=== PATIENT | female | born 1955 | race Caucasian/White ===

== ENCOUNTER → 2018-01-24 | Outpatient (CLI) | payer OTHER ==
[~2018-01-24] MED LIST: ATACAND PO; CARISOPRODOL 3350 MG PO; COLACE 100 MG100 MG PO; COUMADIN 5 MG TA5 M1 PO; CYMBALTA60 MG PO; EXCEDRIN PM PO; FLAGYL500 MG PO; HYDROCODONE-AP1 EAC6 PO; OMEPRAZOLE20 MG PO; OXYCODONE HCL5 M1 PO; PERCOCET PO; TRAMADOL 50 MG50 MG PO; VICODIN 5-5001 EACH PO; ZOFRAN ODT4 MG PO
== END ==
LOC: M.RAD 01-19 08:22
DX: Z12.31 Encounter for screening mammogram for malignant neoplasm of breast (principal); M85.89 Other specified disorders of bone density and structure, multiple sites

== ENCOUNTER 2019-03-04 19:51 | Inpatient (IN) | payer OTHER ==
[~2019-03-04] VITALS: Ht 154.9 cm; Wt 91.2 kg
--- NOTE | ~2019-03-04 | PROC ---
[address] [address] PROCEDURE REPORT Name: RAFITA KAUFMAN Room: [address] ADM IN M.R.#: [id number] Admission: 03/04/19 Attend Phys: Thierno Wheeler MD Discharge: Date of : 51 Report #: [id number] THIS REPORT FOR: //name// For GI report, please see the Provation report in Perceptive 7 content. By: 1058Medical Records Staff [facility] /ROEL
[~2019-03-04 19:51] MED LIST changes: +VICODIN 5-3001 EACH PO; -VICODIN 5-5001 EACH PO
[2019-03-04 20:03] VITALS: BP 142/102
[2019-03-04] MEDS ORDERED: COZAAR 25 MG TA25 M1 PO (20:17)
[2019-03-04] MEDS ORDERED: DOXYCYCLINE 10100 MG PO (20:19)
[2019-03-04] MEDS ORDERED: AMBIEN 5 MG TABL5 M1 PO (20:20)
[2019-03-04] MEDS ORDERED: VITAMIN D5000 UNIT PO (20:20)
[2019-03-04] MEDS ORDERED: FOLIC ACID1 MG PO (20:20)
[2019-03-04 20:48] LABS: ABSOLUTE BASOPHILS 0.1 thou/uL (0.0-0.2); ABSOLUTE EOSINOPHILS 0.1 thou/uL (0.0-0.7); ABSOLUTE LYMPHOCYTES 3.7 thou/uL (0.8-5.3); ABSOLUTE MONOCYTES 0.6 thou/uL (0.0-1.2); ABSOLUTE NEUTROPHILS 4.6 thou/uL (1.6-8.1); BASOPHILS 1.3 %; EOSINOPHILS 1.6 %; HEMATOCRIT 36.7 % (37.0-47.0); HEMOGLOBIN 12.6 gm/dL (12.0-15.0); LYMPHOCYTES 40.2 %; MCHC 34.4 g/dL (28.0-37.0); MCV 96.1 fL (80.0-100.0); MONOCYTES 6.1 %; MPV 7.7 fl. (7.2-11.1); NUCLEATED RBCS 0 /100WBC; PLATELET COUNT* 400 thou/uL (150-400); POLYS 50.8 %; RBC 3.82 mil/uL (4.20-5.00); RDW-CV 16.2 % (10.5-14.5); WBC 9.1 thou/uL (4.0-11.0)
[2019-03-04 20:58] LABS: ANION GAP 13 mmol/L (7-16); BUN 20 mg/dL (7-18); CALCIUM 9.4 mg/dL (8.5-10.1); CHLORIDE 103 mmol/L (98-107); CO2 23 mmol/L (21-32); GLUCOSE 102 mg/dL (70-99); POTASSIUM 4.1 mmol/L (3.5-5.1); SODIUM 139 mmol/L (136-145)
[2019-03-04 21:01] LABS: INR 1.1; PROTIME 10.8 Seconds (9.20-11.50)
[2019-03-04 21:08] LABS: ALBUMIN 3.7 g/dL (3.4-5.0); ALKALINE PHOSPHATASE 92 U/L (46-116); LIPASE 1070 U/L (73-393); NT-PRO BRAIN NAT PEPTIDE 40 pg/mL (<300); SGOT 17 U/L (15-37); SGPT 27 U/L (30-65); TOTAL BILIRUBIN 0.5 mg/dL (<0.1-1.0); TOTAL PROTEIN 7.3 g/dL (6.4-8.2); TROPONIN-I LEVEL <0.06 ng/mL (<0.06)
[2019-03-04 22:02] LABS: URINE BILIRUBIN NEGATIVE (Negative); URINE BLOOD TRACE (Negative); URINE CLARITY CLEAR; URINE COLOR YELLOW; URINE GLUCOSE-RANDOM NEGATIVE (Negative); URINE KETONES NEGATIVE (Negative); URINE LEUKOCYTES-REFLEX NEGATIVE (Negative); URINE NITRITE-REFLEX NEGATIVE (Negative); URINE PROTEIN NEGATIVE (Negative); URINE SPECIFIC GRAVITY <= 1.005 (1.005-1.030); URINE UROBILINOGEN 0.2 E.U./dl (0.2-1.0)
[2019-03-04 23:28] VITALS: BP 154/88
[2019-03-05] VITALS (7 sets, daily range): BP systolic 116–157; BP diastolic 73–88
[2019-03-05] MEDS ORDERED: OMEPRAZOLE40 MG PO (14:24)
--- NOTE | 2019-03-05 14:38 | EKG ---
[place] [address] ELECTROCARDIOGRAM REPORT Name: RAFITA KAUFMAN Room: [address] ADM IN .R.#: [id number] Admission: 03/04/19 Attend Phys: Thierno Wheeler MD Discharge: Date of : 51 Report #: [id number] THIS REPORT FOR: //name// [facility] ED Test Date: 2019-03-04 Test Time: 20:00:19 Pat Name: RAFITA KAUFMAN Department: Room: [facility] Gender: F Dyer Helper: ANGELITA : 1955 Requested By: Wendy Savage Order Number: [id number] Rae MD: Pravin Hsieh Measurements Intervals [place] Rate: 85 P: 29 VA: 168 QRS: 15 QRSD: 99 T: 17 QT: 371 QTc: 442 Interpretive Statements Sinus rhythm Low voltage, precordial leads Borderline T abnormalities, diffuse leads Compared to ECG 07/29/2015 05:52:30 Low QRS voltage now present Sinus tachycardia no longer present Ventricular premature complex(es) no longer present Electronically Signed On 03-05-2019 14:37:44 CDT by Pravin Hsieh [email or web address] <ELECTRONICALLY SIGNED> By: Pravin Hsieh MD, FACC 03/05/19 1437 99 99 Pravin Hsieh MD, [facility] /EPI
--- NOTE | 2019-03-05 15:21 | NUR ---
63 Y/O FEMALE ADMITTED TO TELEMETRY ROOM 207 WITH AN ADMITTING DIAGNOSIS OF PANCREATITIS. PT REPORTS 6/10 PAIN. MEDS GIVEN PER EMAR. VSS. SR ON MONITOR. ASSESSMENT COMPLETED CHARTED. PT DENIES ANY FURTHER NEEDS AT THIS TIME. HOURLY ROUNDING IN PLACE. CLWR.
--- NOTE | 2019-03-05 16:49 | EKG ---
[place] [address] ELECTROCARDIOGRAM REPORT Name: RAFITA KAUFMAN Room: [address] ADM IN .R.#: [id number] Admission: 03/04/19 Attend Phys: Thierno Wheeler MD Discharge: Date of : 51 Report #: [id number] THIS REPORT FOR: //name// [facility] ED Test Date: 2019-03-04 Test Time: 20:11:02 Pat Name: RAFITA KAUFMAN Department: Room: 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
--- NOTE | 2019-03-05 17:43 | CON ---
[address] [address] CONSULTATION Name: RAFITA KAUFMAN Room: [address] IN .R.#: [id number] Admission: 03/04/19 Attend Phys: Thierno Wheeler MD Discharge: Date of : 51 Report #: [id number] THIS REPORT FOR: //name// CC: Kash Wheeler DATE OF SERVICE: 03/05/2019 HISTORY OF PRESENT ILLNESS: The patient is a 63-year-old white female who I was asked to see in the hospital today after she complained of epigastric pain. The patient denies previous history of heart disease. She does not exercise on a regular basis. She was doing well until the past several weeks, she has had intermittent epigastric pain. She has had nausea, episode of diaphoresis. The pain was in her back. It is not related to food or exertion. She denies exertional arm pain. She denies dyspnea on exertion, palpitation, syncope, edema. She came to the hospital yesterday and was found to have evidence of pancreatitis. I was asked to see her for further evaluation and treatment. PAST MEDICAL HISTORY: Significant only for , knee replacement, and hypertension. MEDICATIONS: Include losartan, she is on nerve pill. ALLERGIES: SHE HAS ALLERGIES TO SULFA DRUGS AND LIPITOR. FAMILY HISTORY: Negative for coronary artery disease. SOCIAL HISTORY: She is . She and her live in [place]. She retired from [employer]. No history of smoking or alcohol abuse. REVIEW OF SYSTEMS: She has had no history of stroke, peptic ulcer disease, liver disease. She has had urinary tract infection in the past. No cancer. No psychiatric illness. No chronic skin condition. PHYSICAL EXAMINATION: GENERAL: Revealed a middle-aged female lying in bed. She appeared in mild abdominal discomfort. VITAL SIGNS: She had a blood pressure of 140/80, pulse 90. She is afebrile. HEENT: She was anicteric, conjunctivae pink. Mucous membranes moist. NECK: Veins do not appear distended. No carotid bruits. CHEST: Clear to auscultation. CARDIOVASCULAR: Regular rate and rhythm. ABDOMEN: Epigastric tenderness. No mass were palpated. EXTREMITIES: Had no edema. Dorsalis pedis pulse 2+ bilaterally. SKIN: Warm, [place] [address] CONSULTATION Name: RAFITA KAUFMAN Room: [address] IN [facility].#: [id number] Admission: 03/04/19 Attend Phys: Thierno Wheeler MD Discharge: Date of : 51 Report #: [id number] NEUROLOGIC: Nonfocal. LYMPH: No adenopathy. MUSCULOSKELETAL: No joint effusion. LABORATORY DATA: Her ECG on admission showed a sinus rhythm, nonspecific T-wave changes. Her workup so far, she had a portable chest x-ray done last night that showed normal heart size, clear lung saldana. CT scan of the abdomen and pelvis was done, which showed evidence of an inflamed pancreas, nodularity of the liver was noted. Diverticulosis was noted. She had abdominal ultrasound performed that showed gallstones, fatty infiltration of the liver. She had lab work; sodium 139, creatinine 1.0, lipase 1070. Liver function studies were normal. Troponins all 0.06. White blood cell count 9.1, hemoglobin 12.6. IMPRESSION AND RECOMMENDATIONS: 1. Pancreatitis. 2. Gallstones. 3. Hypertension. The patient has been on ARB. 4. Episode of diaphoresis. Possibly due to pancreatitis. I find no evidence of acute coronary syndrome at this time. 5. Chronic back pain. <ELECTRONICALLY SIGNED> By: Pravin Hsieh MD, FACC 03/05/19 1743 1155 [id number] Hsieh MD, FACC /nt
[2019-03-06 00:29] VITALS: BP 156/78
--- NOTE | 2019-03-06 03:22 | NUR ---
ASSUMED CARE OF PT AT 1900. PT IS ALERT AND ORIENTED. VSS. PERRLA. PT REPORTS SOME PAIN IN ABDOMAN. PT IS NPO EXCEPT MEDS. PT IS IN SINUS RYTHM ON THE TELEMETRY. PT IS RESTING COMFORTABLY IN BED. RESPIRATIONS ARE EVEN AND NONLABORED. WILL CONTINUE TO MONITOR PT.
[2019-03-06 04:00] VITALS: BP 160/80
[2019-03-06 05:18] LABS: ABSOLUTE EOSINOPHILS 0.2 thou/uL (0.0-0.7); ABSOLUTE LYMPHOCYTES 1.9 thou/uL (0.8-5.3); ABSOLUTE MONOCYTES 0.8 thou/uL (0.0-1.2); ABSOLUTE NEUTROPHILS 6.6 thou/uL (1.6-8.1); BASOPHILS 0.4 %; EOSINOPHILS 2.1 %; HEMATOCRIT 32.7 % (37.0-47.0); HEMOGLOBIN 11.3 gm/dL (12.0-15.0); LYMPHOCYTES 19.4 %; MCH 33.5 pg (26.0-34.0); MCHC 34.6 g/dL (28.0-37.0); MCV 96.9 fL (80.0-100.0); MONOCYTES 8.7 %; NUCLEATED RBCS 0 /100WBC; PLATELET COUNT* 360 thou/uL (150-400); POLYS 69.4 %; RBC 3.38 mil/uL (4.20-5.00); RDW-CV 16.4 % (10.5-14.5); WBC 9.5 thou/uL (4.0-11.0)
[2019-03-06 05:24] LABS: CALCIUM 8.8 mg/dL (8.5-10.1); CREATININE 0.7 mg/dL (0.6-1.3); MAGNESIUM 1.9 mg/dL (1.8-2.4); POTASSIUM 4.4 mmol/L (3.5-5.1); TOTAL BILIRUBIN 0.9 mg/dL (<0.1-1.0); TOTAL PROTEIN 6.3 g/dL (6.4-8.2)
[2019-03-06 07:00] VITALS: BP 164/75
--- NOTE | 2019-03-06 08:43 | NUR ---
INITAL ASSESSMENT COMPLETED CHARTED. VSS. TRACING SR ON MONITOR. PT REPORTS 5/10 ABDOMINAL PAIN THAT DIES GET MORE INTENSE WITH MOVEMENT. PT DENIES N/V/D. NO OTHER NEEDS NOTED AT THIS TIME. HOURLY ROUNDING IN PLACE FOR PT SAFETY. CLWR.
[2019-03-06 11:58] VITALS: BP 140/64
--- NOTE | 2019-03-06 15:07 | NUR ---
Pt is A&O. Resides at home with her . Active and independent. Pt has a walker and cane at home that she used post knee surgery in 2010, does not currently use. Hx of . Hx of [facility]. Supportive family. [place], no needs anticipated.
[2019-03-06 20:00] VITALS: BP 174/66
[2019-03-07] VITALS: BP 175/77
[2019-03-07 04:00] VITALS: BP 155/83
[2019-03-07 05:33] LABS: CHOLESTEROL 135 mg/dL (<200); LIPASE 1603 U/L (73-393); TRIGLYCERIDE 54 mg/dL (<150)
[2019-03-07 05:35] LABS: CALCIUM 8.7 mg/dL (8.5-10.1); CREATININE 0.7 mg/dL (0.6-1.3); POTASSIUM 3.6 mmol/L (3.5-5.1)
[2019-03-07 07:00] VITALS: BP 153/80
--- NOTE | 2019-03-07 07:01 | NUR ---
PATIENT SLEPT PART OF THE NIGHT. IV FLUIDS REMAIN AT 200 ML/HR. PATIENT WAS GIVEN PAIN MEDICINE TWICE THIS SHIFT FOR PAIN. WILL CONTINUE TO MONITOR.
[2019-03-07 11:47] VITALS: BP 146/79
[2019-03-07 15:57] VITALS: BP 148/87
--- NOTE | 2019-03-07 16:29 | NUR ---
INITAL ASSESSMENT COMPLETED CHARTED. VSS. TRACING SR ON MONITOR. PT C/O CONSTANT ABDOMINAL PAIN. MEDICATIONS GIVEN PER EMAR. HOURLY ROUNDING IN PLACE FOR PT SAFETY. CLWR.
--- NOTE | 2019-03-07 17:34 | CON ---
[address] [address] CONSULTATION Name: RAFITA KAUFMAN Room: [address] IN M.R.#: [id number] Admission: 03/04/19 Attend Phys: Thierno Wheeler MD Discharge: Date of : 51 Report #: [id number] THIS REPORT FOR: //name// CC: Kash Wheeler DICTATED BY: Frannie Alfonso [facility] DATE OF SERVICE: 03/06/2019 Please note at the time of this dictation, the patient was seen and physically examined by myself. REASON FOR CONSULTATION: Abdominal pain, pancreatitis. HISTORY OF PRESENT ILLNESS: This is a 63-year-old female, who presented to the Emergency Room with intermittent abdominal pain, which was progressively getting worse. She has been noted abdominal discomfort off and on intermittently after eating, but that has not been what caused her to be admitted at this time. She states her pain this time was lasting for about 5 days and it was worsening after she took her methotrexate, which she has been taking for about 11 weeks for her arthritis. She states her pain was in the upper quadrants and radiating into her back. The patient also states that she has issues with constipation followed with diarrhea. Her bowels will not move for 3-4 days and then once they do, then she has diarrhea and the cycle repeats. The patient did have an EGD and colonoscopy back in 2007, that EGD just showed some nonerosive reflux and colon diverticulosis with some external hemorrhoids were noted at that time. The patient is due again for her screening colonoscopy. ALLERGIES: ATORVASTATIN, CELEBREX, MELOXICAM, SULFA AND CRESTOR. MEDICATIONS: From home include Vicodin, Cymbalta, Cozaar, dicyclomine, Ambien, folic acid, vitamin D, and Soma. PAST MEDICAL HISTORY: History of fibromyalgia, arthritis, hypertension, diverticulosis, GERD, sleep apnea. PAST SURGICAL HISTORY: . FAMILY HISTORY: Noncontributory. SOCIAL HISTORY: Denies any alcohol, tobacco or illegal drug use. REVIEW OF SYSTEMS: Twelve-point review of systems is essentially negative except what is [place] [address] CONSULTATION Name: RAFITA KAUFMNA Room: [address] IN [facility]#: [id number] Admission: 03/04/19 Attend Phys: Thierno Wheeler MD Discharge: Date of : 51 Report #: [id number] PHYSICAL EXAMINATION: VITAL SIGNS: Temperature 36.8, pulse 97, respirations 18, blood pressure 164/75. HEART: Regular rate and rhythm. LUNGS: Clear. ABDOMEN: Soft, positive bowel sounds in all 4 quadrants with upper quadrant tenderness noted to palpation. LABORATORY DATA: Hemoglobin 11.3, white count is 9.5, platelets 360. Lipase on admission was 1070 and is up to 1343. GFR is 56. Total bilirubin 0.9, alkaline phosphatase 87, ALT 25, AST is 18. CT of the abdomen and pelvis showed fat stranding around the pancreas and the duodenal wall thickening noted with a nodularity noted of the liver. Ultrasound confirming fatty liver with cirrhosis of the liver and gallstones being noted. IMPRESSION: 1. Abdominal pain. 2. Pancreatitis. 3. Abnormal CT with duodenal wall thickening along with pancreatitis. 4. Fatty liver cirrhosis noted. 5. Constipation. 6. Cholelithiasis. PLAN: 1. EGD today to evaluate the duodenal wall thickening. 2. Continue her IV fluids at 250 mL an hour. 3. We will need outpatient colon and a better bowel regimen. 4. Outpatient workup to follow her fatty liver disease with cirrhosis. 5. Further recommendations to be made once the procedure has been performed. Thank you for allowing us to participate in this patient's care. Please do not hesitate to call with any questions in regard to this consult. <ELECTRONICALLY SIGNED> By: Vickie Toussaint MD 03/07/19 1734 1226 [id number] Toussaint MD /nt
[2019-03-07 20:00] VITALS: BP 128/73
[2019-03-08] VITALS: BP 134/78
[2019-03-08 04:00] VITALS: BP 136/42
[2019-03-08 04:27] LABS: CALCIUM 8.8 mg/dL (8.5-10.1); CREATININE 0.6 mg/dL (0.6-1.3); POTASSIUM 3.7 mmol/L (3.5-5.1)
--- NOTE | 2019-03-08 06:40 | NUR ---
PATIENT SLEPT MOST OF THE NIGHT. IV FLUIDS CONTINUE TO INFUSE AT 200 ML/HR. PATIENT WAS NOT GIVEN ANY PRN PAIN OR NAUSEA MEDS THIS SHIFT. WILL CONTINUE TO MONITOR.
[2019-03-08 07:00] VITALS: BP 140/75
[2019-03-08] MEDS ORDERED: DOK PLUS TABLE1 EACH PO (11:17)
--- NOTE | 2019-03-08 12:33 | NUR ---
INITAL ASSESSMENT COMPLETED CHARTED. VSS. SR WITH PVC'S ON MONITOR. PT UP AD ADARSH. MEDS GIVEN PER EMAR. HOURLY ROUNDING FOR PT SAFETY. CLWR.
[2019-03-08 12:53] VITALS: BP 140/75
--- NOTE | 2019-03-08 14:06 | PATH ---
[facility] [address] [place] [address] PATHOLOGY RPT PROCEDURE Name: RAFITA KAUFMAN Room: [address] IN M.R.#: [id number] Admission: 03/04/19 Date of : 51 Discharge: Report #: [id number] Path Case #: [id number] [facility] Accession Number: [id number] . 01 Material submitted: . stomach - GASTRIC BIOPSY . 01 Clinical history: . None provided . 02 Diagnosis: Gastric biopsy/gastritis: - Moderate nonspecific chronic gastritis, negative for Helicobacter pylori organisms and dysplasia. . (ROQUE:mml; 03/08/2019) [facility]/03/08/2019 . 02 Comment: Special stain: H. pylori immuno. . (ROQUE:mml; 03/08/2019) . 02 Electronically signed: . Sonu Tong MD, Pathologist NPI- [id number] . 01 Gross description: . The specimen is received in formalin, labeled "Rafita Kaufman, gastric biopsy/gastritis" and consists of 5 fragments of pink-kilpatrick tissue measuring 1.1 x 0.5 x 0.2 cm in aggregate which are entirely submitted in A1. (SDY; 03/07/2019) SYU/SYU . 02 Pathologist provided ICD-10: K29.50 . 02 CPT . 232269, V99147 Specimen Comment: A courtesy copy of this report has been sent to Specimen Comment: [phone], , . Specimen Comment: Report sent to ,DR JONES / DR ESTEVEZ Performed at: [address] [id number] MD Stew Griffin MD Phone: [phone] Performed at: [address] [address] PATHOLOGY RPT PROCEDURE Name: RAFITA KAUFMAN Room: [address] IN [facility]#: [id number] Admission: 03/04/19 Date of : 51 Discharge: Report #: [id number] Path Case #: [id number] [address] [place], [place] [id number] MD Sonu Tong MD Phone: [phone]
== END 2019-03-08 14:36 | disposition home or self-care (01) | DRG 391 ==
LOC: M.ERS 19:51 → M.2W 22:01 → M.TBA-ER 22:01 → M.2W 03-05 14:14
PROVIDERS: Emergency Medicine; Family Medicine; Internal Medicine Gastroenterology; ADMIT Internal Medicine
PROC: 0DB68ZX Excision of Stomach, Via Natural or Artificial Opening Endoscopic, Diagnostic (ICD-10-PCS; principal; 2019-03-06)
DX: K29.70 Gastritis, unspecified, without bleeding (principal); K85.90 Acute pancreatitis without necrosis or infection, unspecified; E44.1 Mild protein-calorie malnutrition; K80.80 Other cholelithiasis without obstruction; M19.90 Unspecified osteoarthritis, unspecified site; M79.7 Fibromyalgia; I10 Essential (primary) hypertension; K57.90 Diverticulosis of intestine, part unspecified, without perforation or abscess without bleeding; K21.9 Gastro-esophageal reflux disease without esophagitis; Z96.659 Presence of unspecified artificial knee joint; G89.29 Other chronic pain; M54.9 Dorsalgia, unspecified; K59.00 Constipation, unspecified; K80.20 Calculus of gallbladder without cholecystitis without obstruction; K74.60 Unspecified cirrhosis of liver; G47.33 Obstructive sleep apnea (adult) (pediatric); L40.50 Arthropathic psoriasis, unspecified; Z79.899 Other long term (current) drug therapy; Z88.2 Allergy status to sulfonamides; Z88.8 Allergy status to other drugs, medicaments and biological substances; Z68.38 Body mass index [BMI] 38.0-38.9, adult

== ENCOUNTER 2019-09-14 14:42 | Emergency (ER) | payer OTHER ==
[~2019-09-14] VITALS: Ht 154.9 cm; Wt 81.7 kg
[~2019-09-14 14:42] MED LIST changes: +AMBIEN 5 MG TABL5 M1 PO; +COZAAR 25 MG TA25 M1 PO; +DOK PLUS TABLE1 EACH PO; +DOXYCYCLINE 10100 MG PO; +FOLIC ACID1 MG PO; +OMEPRAZOLE40 MG PO; +VITAMIN D5000 UNIT PO
[2019-09-14 15:45] LABS: ABSOLUTE BASOPHILS 0.1 thou/uL (0.0-0.2); ABSOLUTE EOSINOPHILS 0.3 thou/uL (0.0-0.7); ABSOLUTE LYMPHOCYTES 2.8 thou/uL (0.8-5.3); ABSOLUTE MONOCYTES 0.3 thou/uL (0.0-1.2); ABSOLUTE NEUTROPHILS 5.4 thou/uL (1.6-8.1); EOSINOPHILS 3.1 %; HEMATOCRIT 38.6 % (37.0-47.0); HEMOGLOBIN 13.2 gm/dL (12.0-15.0); LYMPHOCYTES 31.7 %; MCH 31.9 pg (26.0-34.0); MCHC 34.3 g/dL (28.0-37.0); MCV 93.1 fL (80.0-100.0); MONOCYTES 3.6 %; NUCLEATED RBCS 0 /100WBC; PLATELET COUNT* 364 thou/uL (150-400); POLYS 60.6 %; RBC 4.14 mil/uL (4.20-5.00); RDW-CV 13.7 % (10.5-14.5)
[2019-09-14 15:54] LABS: CALCIUM 8.6 mg/dL (8.5-10.1); CREATININE 0.8 mg/dL (0.6-1.3); POTASSIUM 3.5 mmol/L (3.5-5.1)
[2019-09-14 15:55] LABS: APTT 25.9 Seconds (25.0-31.3)
[2019-09-14 15:59] LABS: ALBUMIN 3.4 g/dL (3.4-5.0); TOTAL BILIRUBIN 0.4 mg/dL (<0.1-1.0); TOTAL PROTEIN 7.3 g/dL (6.4-8.2)
[2019-09-14 16:12] VITALS: BP 173/88
--- NOTE | 2019-09-17 08:27 | EKG ---
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 : 1955 Requested By: Jarret Gaytan Order Number: [id number] MD: Pravin Hsieh Measurements Intervals [place] Rate: 86 P: 49 NV: 163 QRS: 7 QRSD: 95 T: 24 QT: 376 QTc: 450 Interpretive Statements Sinus rhythm Ventricular premature complex Borderline T wave abnormalities Compared to ECG 03/04/2019 20:11:02 Ventricular premature complex(es) now present T-wave abnormality still present Electronically Signed On 09-17-2019 8:27:13 PROPERTY ASSISTANT by Pravin Hsieh [email or web address] <ELECTRONICALLY SIGNED> By: Pravin Hsieh MD, [facility] 09/17/19 0827 1455 1455 Pravin Hsieh MD, FACC /EPI
== END 2019-09-14 16:13 | disposition home or self-care (01) ==
LOC: M.ERS 14:42
PROVIDERS: Family Medicine
DX: H53.8 Other visual disturbances (principal); I10 Essential (primary) hypertension; K21.9 Gastro-esophageal reflux disease without esophagitis; G47.30 Sleep apnea, unspecified; M79.7 Fibromyalgia; Z98.890 Other specified postprocedural states; Z88.8 Allergy status to other drugs, medicaments and biological substances; Z88.2 Allergy status to sulfonamides